=== PATIENT | female | born 1955 | race Caucasian/White ===

== ENCOUNTER 2017-03-21 06:45 | Day surgery (SDC) | payer OTHER ==
[~2017-03-21] VITALS: Ht 167.6 cm; Wt 55.8 kg
[2017-03-21] MEDS ORDERED: LIDOCAINE 2%HCL (LOCAL ANESTH.) INJ 20ML MDV ONE ×2 (07:54→08:20)
[2017-03-21] MEDS ORDERED: fentaNYL CITRATE 100 MCG/2 ML VL ONE (08:12)
[2017-03-21] MEDS ORDERED: MIDAZOLAM HCL 1MG/1ML-2 ML VIAL ONE (08:12)
== END 2017-03-21 12:00 | disposition home or self-care (01) ==
LOC: CATH 06:45
PROVIDERS: ATTEND Specialist
DX: R55 Syncope and collapse (principal); Z88.1 Allergy status to other antibiotic agents; Z88.2 Allergy status to sulfonamides; J40 Bronchitis, not specified as acute or chronic; Z98.51 Tubal ligation status; Z90.11 Acquired absence of right breast and nipple
CPT/HCPCS: 93619; 93623; C1894; J1644; J2250; J3010; J7030; 99152